=== PATIENT | female | born 1935 | race Caucasian/White ===

== ENCOUNTER 2023-12-19 15:19 | Inpatient (IN) | payer OTHER ==
[2023-12-19 15:45] LABS: EOS % 0.1 % (0-4.5); HEMATOCRIT 29.9 % (32.4-45.2); HEMOGLOBIN 9.3 GM/dL (10.7-15.3); LYMPH % 33.4 % (8-40); MCH 23.6 pg (25.7-33.7); MCHC 31.1 g/dl (32.0-36.0); MEAN CELL VOLUME 76.1 fl (80-96); MEAN PLT VOLUME 7.8 fl (7.5-11.1); MONO % 5.2 % (3.8-10.2); NEUT % 60.3 % (42.8-82.8); PLATELET COUNT 234 10^3/uL (134-434); RBC 3.93 M/mm3 (3.60-5.2); WHITE BLOOD COUNT 15.9 K/mm3 (4.0-10.0)
[2023-12-19 15:53] LABS: INR 1.32 (0.83-1.09); PROTHROMBIN TIME (PATIENT) 15.1 SEC (9.7-13.0)
[2023-12-19 15:55] LABS: ACTIVATED PTT 23.9 SECONDS (25.2-36.5)
[2023-12-19 16:00] LABS: VENOUS BASE EXCESS -5.1 mmol/L (-2-2); VENOUS O2 SATURATION 94.6 % (70-80); VENOUS PH 7.429 (7.310-7.410)
[2023-12-19 16:05] LABS: CHLORIDE 107 mmol/L (98-107); POTASSIUM 3.9 mmol/L (3.5-5.1); SODIUM 143 mmol/L (136-145)
[2023-12-19 16:08] LABS: CALCIUM 8.8 mg/dL (8.5-10.1)
[2023-12-19 16:09] LABS: ANION GAP 16 mmol/L (4-13); CO2 20 mmol/L (21-32); GLUCOSE,RANDOM 149 mg/dL (74-106)
[2023-12-19 16:11] LABS: MAGNESIUM 2.5 mg/dL (1.8-2.4)
[2023-12-19 16:12] LABS: CREATININE 1.3 mg/dL (0.55-1.3); SGOT/AST 28 U/L (15-37); SGPT/ALT 8 U/L (13-61)
[2023-12-19 16:13] LABS: BILIRUBIN,TOTAL 0.9 mg/dL (0.2-1); TOT PROT 7.4 g/dl (6.4-8.2)
[2023-12-19 16:15] LABS: ALK PHOS 158 U/L (45-117); PHOSPHOROUS 4.7 mg/dL (2.5-4.9)
[2023-12-19 16:17] LABS: LACTIC ACID 3.8 mmol/L (0.4-2.0)
[2023-12-19] MEDS: SODIUM CHLORIDE 0.9% 500 ML INFUS.BAG IV ONE ×2 (16:17→18:11)
[2023-12-19] MEDS ORDERED: PIPERACILLIN/TAZOB 4.5 GM 4.5 GM/100 ML BAG IVPB ONE (18:47)
[2023-12-19] MEDS: PIPERACILLIN/TAZOB 4.5 GM 4.5 GM in DEXTROSE 5%-WATER 100 ML IVPB ONE (18:57)
[2023-12-19] MEDS ORDERED: VANCOMYCIN 1 GRAM (PRE-DOCKED) 1,000 MG/250 ML BAG IVPB ONE (22:09)
[2023-12-19 22:13] LABS: LACTIC ACID 2.5 mmol/L (0.4-2.0)
[2023-12-19] MEDS: VANCOMYCIN 1,000 MG in DEXTROSE 5%-WATER - 250 ML IVPB ONE (22:25)
[2023-12-19] MEDS ORDERED: ASPIRIN 81 MG CHEWABLE TABLETS ONE (22:27)
[2023-12-19] MEDS: ASPIRIN 81 MG CHEWABLE TABLETS PO ONE (22:42)
[2023-12-20 00:05] LABS: URINE AMPHETAMINES NEGATIVE (NEGATIVE); URINE BARBITURATES NEGATIVE (NEGATIVE)
[2023-12-20 00:06] LABS: COCAINE, UR NEGATIVE (NEGATIVE); METHADONE, UR NEGATIVE (NEGATIVE); OPIATES, URI NEGATIVE (NEGATIVE); PHENCYCLIDINE,URINE NEGATIVE (NEGATIVE); URINE BENZODIAZEPINES NEGATIVE (NEGATIVE)
[2023-12-20 00:34] LABS: EPI CELLS 8 /uL (0-25.1); HYALINE CASTS 1 /uL (0-3.1); URINE APPEARANCE TURBID; URINE BILIRUBIN NEGATIVE (NEGATIVE); URINE COLOR DK YELLOW; URINE GLUCOSE (UA) NEGATIVE (NEGATIVE); URINE KETONE NEGATIVE (NEGATIVE); URINE LEUK ESTERASE 2+ (NEGATIVE); URINE NITRITE NEGATIVE (NEGATIVE); URINE PROTEIN 2+ (NEGATIVE); URINE WBC 3729 /uL (0-25.8)
[2023-12-20] MEDS ORDERED: VANCOMYCIN 1,000 MG in DEXTROSE 5%-WATER - 250 ML IVPB SCH (01:00)
[2023-12-20] MEDS: SODIUM CHLORIDE 1,000 ML IV SCH (01:23)
[2023-12-20] MEDS: INSULIN ASPART SLIDING SCALE (NOVOLOG) 1 VIAL SQ SCH ×2 (01:24→09:00)
[2023-12-20] MEDS ORDERED: PIPERACILLIN/TAZOB 3.375 GM 3.375 GM in DEXTROSE 5%-WATER - 50 ML IVPB SCH (02:00)
[2023-12-20] MEDS ORDERED: PIPERACILLIN/TAZOB 2.25 GM 2.25 GM/50 ML BAG IVPB ONE ×2 (03:24→09:58)
[2023-12-20] MEDS: PIPERACILLIN/TAZOB 2.25 GM 2.25 GM in DEXTROSE 5%-WATER - 50 ML IVPB SCH ×2 (03:31→03:32)
[2023-12-20 04:28] LABS: URINE BACTERIA 1232.4 /uL (0-1359); URINE RBC 348.4 /uL (0-23.9); YEAST NONE SEEN (NEGATIVE)
[2023-12-20] MEDS: VANCOMYCIN/WATER FOR INJ (PEG) 1,000 MG/200 ML BAG IVPB SCH ×2 (05:16→10:37)
[2023-12-20 07:41] LABS: HEMATOCRIT 28.9 % (32.4-45.2); HEMOGLOBIN 8.9 GM/dL (10.7-15.3); MCH 23.8 pg (25.7-33.7); MCHC 30.9 g/dl (32.0-36.0); MEAN PLT VOLUME 8.1 fl (7.5-11.1); PLATELET COUNT 155 10^3/uL (134-434); RBC 3.75 M/mm3 (3.60-5.2); RETICULOCYTES 1.33 % (0.5-1.5); WHITE BLOOD COUNT 12.1 K/mm3 (4.0-10.0)
[2023-12-20 08:06] LABS: POTASSIUM 3.2 mmol/L (3.5-5.1)
[2023-12-20 08:14] LABS: ALBUMIN 1.7 g/dl (3.4-5.0); BLOOD UREA NITROGEN 43.4 mg/dL (7-18); MAGNESIUM 2.1 mg/dL (1.8-2.4)
[2023-12-20 08:17] LABS: CREATININE 1.2 mg/dL (0.55-1.3); PHOSPHOROUS 3.7 mg/dL (2.5-4.9); TOT PROT 6.4 g/dl (6.4-8.2)
[2023-12-20] MEDS: POTASSIUM CHLORIDE ORAL LIQUID 20 MEQ/15 ML PO ONE (09:55)
[2023-12-20] MEDS: ASPIRIN COATED 81 MG TABLET.EC PO SCH (09:55)
[2023-12-20] MEDS ORDERED: VANCOMYCIN 1 GRAM (PRE-DOCKED) 1,000 MG/250 ML BAG IVPB ONE (09:58)
[2023-12-20 10:07] LABS: LACTIC ACID 2.8 mmol/L (0.4-2.0)
[2023-12-20] MEDS ORDERED: ENOXAPARIN NA (PORCINE) 40 MG/0.4 ML DISP.SYRIN SQ ONE (10:13)
[2023-12-20] MEDS: ENOXAPARIN NA (PORCINE) 40 MG/0.4 ML DISP.SYRIN SQ SCH (10:15)
[2023-12-20 12:20] LABS: LACTIC ACID 2.3 mmol/L (0.4-2.0)
[2023-12-20] MEDS: ACETAMINOPHEN 1000 MG/100 ML BAG IVPB PRN (15:07)
[2023-12-20] MEDS ORDERED: PIPERACILLIN/TAZOB 3.375 GM 3.375 GM/50 ML BAG IVPB ONE (18:44)
[2023-12-20] MEDS: PIPERACILLIN/TAZOB 3.375 GM 50 ML IVPB SCH (18:54)
[2023-12-20 19:48] LABS: LACTIC ACID 3.1 mmol/L (0.4-2.0)
[2023-12-20] MEDS: ATORVASTATIN CA 40 MG TABLET (FP) PO SCH (22:19)
[2023-12-20] MEDS ORDERED: DEXTROSE 50%-WATER 25 GM/50 ML DISP.SYRIN IVPUSH PRN (22:58)
[2023-12-20] MEDS: SODIUM CHLORIDE 500 ML IV STA (23:45)
[2023-12-21] MEDS: DEXTROSE 5%-NORMAL SALINE 1,000 ML IV SCH (01:33)
[2023-12-21 02:41] LABS: LACTIC ACID 2.2 mmol/L (0.4-2.0)
[2023-12-21 06:15] VITALS: BMI 30.8
[2023-12-21 07:35] LABS: POTASSIUM 3.3 mmol/L (3.5-5.1)
[2023-12-21 07:36] LABS: BASO % 0.3 % (0-2.0); EOS % 0.4 % (0-4.5); HEMOGLOBIN 8.6 GM/dL (10.7-15.3); LYMPH % 18.2 % (8-40); MCH 24.3 pg (25.7-33.7); MCHC 31.7 g/dl (32.0-36.0); MEAN CELL VOLUME 76.6 fl (80-96); MEAN PLT VOLUME 8.4 fl (7.5-11.1); MONO % 3.8 % (3.8-10.2); NEUT % 77.3 % (42.8-82.8); PLATELET COUNT 184 10^3/uL (134-434); RBC 3.52 M/mm3 (3.60-5.2); RDW 17.2 % (11.6-15.6); WHITE BLOOD COUNT 8.4 K/mm3 (4.0-10.0)
[2023-12-21 07:41] LABS: ALBUMIN 1.7 g/dl (3.4-5.0); BLOOD UREA NITROGEN 44.4 mg/dL (7-18); CALCIUM 7.9 mg/dL (8.5-10.1); MAGNESIUM 2.1 mg/dL (1.8-2.4)
[2023-12-21 07:42] LABS: BILIRUBIN,TOTAL 0.9 mg/dL (0.2-1)
[2023-12-21 07:44] LABS: CREATININE 1.4 mg/dL (0.55-1.3)
[2023-12-21 07:45] LABS: TOT PROT 6.4 g/dl (6.4-8.2)
[2023-12-21 07:59] LABS: LACTIC ACID 2.2 mmol/L (0.4-2.0)
[2023-12-21 09:33] LABS: LACTIC ACID 2.4 mmol/L (0.4-2.0)
[2023-12-21] MEDS: KCL 10 MEQ IVPB 10 MEQ/100 ML INFUS.BAG IVPB SCH (13:00)
[2023-12-21] MEDS ORDERED: ZINC OXIDE 20% TOPICAL OINTMENT 30 GM TUBE TP SCH (22:00)
[2023-12-21] MEDS ORDERED: ROSUVASTATIN CA 40 MG TABLET PO SCH (22:00)
[2023-12-21] MEDS: ROSUVASTATIN CA 20 MG TABLET PO SCH (22:53)
[2023-12-21] MEDS: ZINC OXIDE 20% TOPICAL OINTMENT 30 GM TUBE TP SCH (22:54)
[2023-12-22 09:23] LABS: HEMATOCRIT 21.6 % (32.4-45.2); MCH 23.6 pg (25.7-33.7); MCHC 30.7 g/dl (32.0-36.0); MEAN CELL VOLUME 77.1 fl (80-96); MEAN PLT VOLUME 8.3 fl (7.5-11.1); PLATELET COUNT 154 10^3/uL (134-434); RBC 2.81 M/mm3 (3.60-5.2); RDW 17.3 % (11.6-15.6); WHITE BLOOD COUNT 7.6 K/mm3 (4.0-10.0)
[2023-12-22 09:34] LABS: HEMOGLOBIN 6.6 GM/dL (10.7-15.3)
[2023-12-22 09:35] LABS: CHLORIDE 119 mmol/L (98-107); SODIUM 147 mmol/L (136-145)
[2023-12-22 09:40] LABS: CALCIUM 7.5 mg/dL (8.5-10.1)
[2023-12-22 09:41] LABS: ALBUMIN 1.4 g/dl (3.4-5.0); BLOOD UREA NITROGEN 42.5 mg/dL (7-18); CO2 18 mmol/L (21-32); GLUCOSE,RANDOM 151 mg/dL (74-106)
[2023-12-22 09:42] LABS: ANION GAP 10 mmol/L (4-13); POTASSIUM 2.7 mmol/L (3.5-5.1)
[2023-12-22 09:43] LABS: CREATININE 1.6 mg/dL (0.55-1.3); SGOT/AST 22 U/L (15-37); SGPT/ALT 12 U/L (13-61)
[2023-12-22 09:45] LABS: BILIRUBIN,TOTAL 0.8 mg/dL (0.2-1); TOT PROT 5.5 g/dl (6.4-8.2)
[2023-12-22 09:46] LABS: ALK PHOS 139 U/L (45-117)
[2023-12-22 11:55] LABS: HEMATOCRIT 22.4 % (32.4-45.2); MCH 23.9 pg (25.7-33.7); MCHC 31.1 g/dl (32.0-36.0); MEAN CELL VOLUME 76.7 fl (80-96); MEAN PLT VOLUME 8.2 fl (7.5-11.1); PLATELET COUNT 155 10^3/uL (134-434); RBC 2.91 M/mm3 (3.60-5.2); RDW 16.7 % (11.6-15.6); WHITE BLOOD COUNT 7.9 K/mm3 (4.0-10.0)
[2023-12-22] MEDS: POTASSIUM CHLORIDE ORAL LIQUID 20 MEQ/15 ML PO SCH ×2 (13:35→15:50)
[2023-12-22] MEDS ORDERED: ROSUVASTATIN CA 20 MG TABLET PO SCH (22:00)
[2023-12-23 07:06] LABS: HEMATOCRIT 30.1 % (32.4-45.2); HEMOGLOBIN 9.7 GM/dL (10.7-15.3); MCH 25.7 pg (25.7-33.7); MCHC 32.3 g/dl (32.0-36.0); MEAN CELL VOLUME 79.6 fl (80-96); MEAN PLT VOLUME 8.1 fl (7.5-11.1); PLATELET COUNT 130 10^3/uL (134-434); RBC 3.78 M/mm3 (3.60-5.2); RDW 16.9 % (11.6-15.6); WHITE BLOOD COUNT 9.5 K/mm3 (4.0-10.0)
[2023-12-23 07:29] LABS: POTASSIUM 3.8 mmol/L (3.5-5.1)
[2023-12-23 07:33] LABS: ALBUMIN 1.4 g/dl (3.4-5.0); BLOOD UREA NITROGEN 38.1 mg/dL (7-18)
[2023-12-23 07:35] LABS: CALCIUM 7.6 mg/dL (8.5-10.1)
[2023-12-23 07:37] LABS: CREATININE 1.5 mg/dL (0.55-1.3)
[2023-12-23 07:38] LABS: BILIRUBIN,TOTAL 0.8 mg/dL (0.2-1); TOT PROT 5.4 g/dl (6.4-8.2)
[2023-12-23] MEDS: CEFTRIAXONE 2 GM in DEXTROSE 5%-WATER 100 ML IVPB SCH (10:55)
[2023-12-23] MEDS: METOPROLOL TARTRATE 25 MG TABLET (FP) PO SCH (21:40)
[2023-12-23] MEDS: levETIRAcetam 500 MG/5 ML ORAL SOLUTION (UNIT-DOSE CUPS) NGT SCH (21:40)
[2023-12-24 07:42] LABS: HEMATOCRIT 30.2 % (32.4-45.2); HEMOGLOBIN 10.1 GM/dL (10.7-15.3); MCH 26.1 pg (25.7-33.7); MCHC 33.4 g/dl (32.0-36.0); MEAN CELL VOLUME 78.2 fl (80-96); MEAN PLT VOLUME 8.4 fl (7.5-11.1); PLATELET COUNT 94 10^3/uL (134-434); RBC 3.86 M/mm3 (3.60-5.2); RDW 17.3 % (11.6-15.6); WHITE BLOOD COUNT 9.5 K/mm3 (4.0-10.0)
[2023-12-24 07:55] LABS: POTASSIUM 3.6 mmol/L (3.5-5.1)
[2023-12-24 08:00] LABS: ALBUMIN 1.3 g/dl (3.4-5.0); BLOOD UREA NITROGEN 34.5 mg/dL (7-18)
[2023-12-24 08:04] LABS: CREATININE 1.2 mg/dL (0.55-1.3)
[2023-12-24 08:05] LABS: BILIRUBIN,TOTAL 0.4 mg/dL (0.2-1); TOT PROT 5.3 g/dl (6.4-8.2)
[2023-12-24] MEDS: NYSTATIN POWDER 100,000 UNITS/GM - 15 GM TOPICAL POWDER TP SCH (11:38)
[2023-12-24] MEDS: SODIUM CHLORIDE 0.45% 1,000 ML IV SCH (20:30)
[2023-12-25 07:31] LABS: HEMATOCRIT 27.7 % (32.4-45.2); HEMOGLOBIN 9.3 GM/dL (10.7-15.3); MCH 26.5 pg (25.7-33.7); MCHC 33.5 g/dl (32.0-36.0); MEAN PLT VOLUME 8.7 fl (7.5-11.1); PLATELET COUNT 87 10^3/uL (134-434); RDW 17.6 % (11.6-15.6); WHITE BLOOD COUNT 10.7 K/mm3 (4.0-10.0)
[2023-12-25 07:50] LABS: POTASSIUM 3.7 mmol/L (3.5-5.1)
[2023-12-25 07:56] LABS: CALCIUM 7.3 mg/dL (8.5-10.1)
[2023-12-25 07:57] LABS: ALBUMIN 1.2 g/dl (3.4-5.0); BLOOD UREA NITROGEN 30.9 mg/dL (7-18)
[2023-12-25 08:00] LABS: BILIRUBIN,TOTAL 0.3 mg/dL (0.2-1); CREATININE 1.1 mg/dL (0.55-1.3)
[2023-12-25] MEDS: CEPHALEXIN MONOHYDRATE 500 MG CAPSULE (UD) PO SCH (10:14)
[2023-12-25 17:06] LABS: POTASSIUM 3.8 mmol/L (3.5-5.1)
[2023-12-25 17:09] LABS: BLOOD UREA NITROGEN 32.6 mg/dL (7-18); CALCIUM 7.4 mg/dL (8.5-10.1)
[2023-12-25 17:13] LABS: CREATININE 1.1 mg/dL (0.55-1.3)
[2023-12-26 11:08] LABS: HEMATOCRIT 30.6 % (32.4-45.2); HEMOGLOBIN 9.5 GM/dL (10.7-15.3); MEAN CELL VOLUME 80.6 fl (80-96); MEAN PLT VOLUME 9.3 fl (7.5-11.1); PLATELET COUNT 131 10^3/uL (134-434); WHITE BLOOD COUNT 11.4 K/mm3 (4.0-10.0)
[2023-12-26 11:27] LABS: POTASSIUM 3.7 mmol/L (3.5-5.1)
[2023-12-26 11:29] LABS: BLOOD UREA NITROGEN 27.8 mg/dL (7-18); CALCIUM 7.5 mg/dL (8.5-10.1)
[2023-12-26 11:32] LABS: CREATININE 1.1 mg/dL (0.55-1.3)
[2023-12-27 07:25] LABS: BASO % 0.8 % (0-2.0); EOS % 1.3 % (0-4.5); HEMATOCRIT 28.3 % (32.4-45.2); HEMOGLOBIN 9.2 GM/dL (10.7-15.3); LYMPH % 22.7 % (8-40); MCH 25.8 pg (25.7-33.7); MCHC 32.4 g/dl (32.0-36.0); MEAN CELL VOLUME 79.6 fl (80-96); MEAN PLT VOLUME 8.8 fl (7.5-11.1); MONO % 4.8 % (3.8-10.2); NEUT % 70.4 % (42.8-82.8); PLATELET COUNT 145 10^3/uL (134-434); RBC 3.55 M/mm3 (3.60-5.2); RDW 18.3 % (11.6-15.6)
[2023-12-27 07:31] LABS: POTASSIUM 3.8 mmol/L (3.5-5.1)
[2023-12-27 07:39] LABS: BLOOD UREA NITROGEN 31.8 mg/dL (7-18); MAGNESIUM 1.5 mg/dL (1.8-2.4)
[2023-12-27 07:41] LABS: CREATININE 1.1 mg/dL (0.55-1.3); PHOSPHOROUS 3.5 mg/dL (2.5-4.9)
[2023-12-27 07:43] LABS: BILIRUBIN,TOTAL 0.5 mg/dL (0.2-1); TOT PROT 4.7 g/dl (6.4-8.2)
[2023-12-27] MEDS: MAGNESIUM SULFATE IN WATER 2 GM/50 ML IVPB IVPB ONE (09:48)
[2023-12-27] MEDS ORDERED: LORazepam 2 MG/ML SDV VIAL IVPUSH PRN (10:00)
[2023-12-27 11:16] LABS: ARTERIAL BLD GAS O2 SATURATION 96.7 % (95-98); ARTERIAL BLOOD GAS BASE EXCESS -4.5 mmol/L (-2-2); ARTERIAL BLOOD GAS PO2 81.2 mmHg (80-100); ARTERIAL BLOOD GAS pH 7.463 (7.350-7.450)
[2023-12-27] MEDS: MORPHINE 100 MG/100 ML MG IVPB SCH (12:15)
[2023-12-28] MEDS ORDERED: LORazepam 2 MG/ML SDV VIAL IVPUSH PRN (10:29)
[2023-12-29] MEDS: FUROSEMIDE 40 MG/4 ML INJECTABLE VIAL IVPUSH ONE (12:53)
[2023-12-29 15:55] VITALS: BP 107/46; PULSE 88; RESP 16; TEMP 97.3
== END 2023-12-30 06:39 | disposition expired | DRG 64 ==
LOC: JER 15:19 → JERBED 21:46 → J4W 12-20 20:26
PROVIDERS: ADMIT Internal Medicine; ATTEND Internal Medicine
PROC: 0DH67UZ Insertion of Feeding Device into Stomach, Via Natural or Artificial Opening (ICD-10-PCS; principal; 2023-12-21)
DX: I63.511 Cerebral infarction due to unspecified occlusion or stenosis of right middle cerebral artery (principal); R53.2 Functional quadriplegia; E87.0 Hyperosmolality and hypernatremia; E87.20 Acidosis, unspecified; I24.89 Other forms of acute ischemic heart disease; N39.0 Urinary tract infection, site not specified; D50.9 Iron deficiency anemia, unspecified; F03.90 Unspecified dementia, unspecified severity, without behavioral disturbance, psychotic disturbance, mood disturbance, and anxiety; E87.6 Hypokalemia; E86.0 Dehydration
CPT/HCPCS: 0241U-QW; 36415; 36430; 36600; 70450-TC; 70551-TC; 71045-TC-FY; 74176-TC; 80048; 80053; 80061; 80307; 81003; 82010; 82272; 82550; 82728; 82803; 82962; 83036; 83540; 83550; 83605; 83735; 84100; 84436; 84439; 84443; 84466; 84484; 85025; 85027; 85045; 85379; 85610; 85730; 86850; 86900; 86901; 86922; 87040; 87086; 87186; 93005; 93010; 93306-TC; 93880-TC; 97163-GP; 99291; G0480; J0131; P9058